=== PATIENT | male | born 1970 | race Caucasian/White ===

== ENCOUNTER → 2020-04-04 | Outpatient (CLI) | payer BC, OTHER ==
[2020-04-04 09:00] LABS: BUN/CREATININE RATIO 15 (0-10)
== END ==
LOC: LAB 08:09
PROVIDERS: Nurse Practitioner Family
DX: E11.9 Type 2 diabetes mellitus without complications (principal)
CPT/HCPCS: 36415; 80053; 83036

== ENCOUNTER → 2021-03-25 | Outpatient (CLI) | payer BC ==
[2021-03-25 10:53] LABS: HEMOGLOBIN 14.9 gm/dl (14.0-17.5); RED BLOOD COUNT 5.03 M/UL (4.20-5.50); WHITE BLOOD COUNT 5.3 K/UL (4.5-11.0)
[2021-03-26 07:11] LABS: A/G RATIO 1.4 (1.2-2.2); ALKALINE PHOSPHATASE, S 68 IU/L (44-121); ALT (SGPT) 109 IU/L (0-44); AST (SGOT) 108 IU/L (0-40); BILIRUBIN, TOTAL 0.4 mg/dL (0.0-1.2); BUN 10 mg/dL (6-24); BUN/CREATININE RATIO 12 (9-20); C-REACTIVE PROTEIN, QUANT 6 mg/L (0-10); CALCIUM, SERUM 9.4 mg/dL (8.7-10.2); CARBON DIOXIDE, TOTAL 22 mmol/L (20-29); CHLORIDE, SERUM 99 mmol/L (96-106); CHOLESTEROL, TOTAL 225 mg/dL (100-199); CREATININE, SERUM 0.86 mg/dL (0.76-1.27); EGFR IF AFRICN AM 115 (>59); EGFR IF NONAFRICN AM 100 (>59); GLUCOSE, SERUM 237 mg/dL (65-99); HDL CHOLESTEROL 38 mg/dL (>39); LDL CHOLESTEROL CALC 136 mg/dL (0-99); LDL/HDL RATIO 3.6 ratio (0.0-3.6); POTASSIUM, SERUM 4.5 mmol/L (3.5-5.2); PROTEIN, TOTAL, SERUM 7.2 g/dL (6.0-8.5); SODIUM, SERUM 139 mmol/L (134-144); T. CHOL/HDL RATIO 5.9 ratio (0.0-5.0); TRIGLYCERIDES 280 mg/dL (0-149)
[2021-03-26 08:14] LABS: VITAMIN D, 25-HYDROXY 25.1 ng/mL (30.0-100.0)
== END ==
LOC: LAB 09:53
PROVIDERS: Nurse Practitioner Family
DX: E11.9 Type 2 diabetes mellitus without complications (principal); E78.5 Hyperlipidemia, unspecified; E55.9 Vitamin D deficiency, unspecified; Z87.39 Personal history of other diseases of the musculoskeletal system and connective tissue
CPT/HCPCS: 36415; 80053; 80061; 82570; 84156; 84439; 84443; 84550; 85025; 85652; 86140

== ENCOUNTER → 2021-04-01 | Outpatient (CLI) | payer BC ==
[2021-04-02 06:12] LABS: HBSAG SCREEN Negative (Negative); HCV AB 0.1 (0.0-0.9)
[2021-04-02 11:16] LABS: HEP B CORE AB, TOT Negative (Negative)
== END ==
LOC: LAB 07:59
PROVIDERS: Nurse Practitioner Family
DX: R74.8 Abnormal levels of other serum enzymes (principal)
CPT/HCPCS: 36415; 86704; 86803; 87340

== ENCOUNTER → 2021-04-11 | Outpatient (CLI) | payer BC | LOC: EXRD 10:30 | DX: R74.8 Abnormal levels of other serum enzymes (principal) | CPT/HCPCS: 76705 ==

== ENCOUNTER → 2021-10-06 | Outpatient (CLI) | payer BC ==
[2021-10-06 08:19] LABS: HEMOGLOBIN 14.7 gm/dl (14.0-17.5); RED BLOOD COUNT 5.25 M/UL (4.20-5.50)
[2021-10-06 08:41] LABS: BUN/CREATININE RATIO 18 (0-10)
== END ==
LOC: LAB 07:35
PROVIDERS: Nurse Practitioner Family
DX: E78.5 Hyperlipidemia, unspecified (principal); M10.9 Gout, unspecified; E55.9 Vitamin D deficiency, unspecified
CPT/HCPCS: 36415; 80053; 80061; 84439; 84443; 84550; 85025